=== PATIENT | male | born 1945 | race Caucasian/White ===

== ENCOUNTER → 2018-10-14 12:02 | Outpatient (CLI) | payer OTHER, BC, SELFPAY ==
--- NOTE | 2018-10-14 | DI.MRI.S_ITS ---
PROCEDURE: MR LUMBAR SPINE WO CON INDICATIONS: LUMBAR BACK PAIN TECHNIQUE: Noncontrast sagittal T1 spin echo and T2 fast echo, sagittal STIR, axial T1 and T2 fast spin echo through the lumbar spine. In cases with scoliosis, additional coronal T2 fast spin echo may be performed. COMPARISON: None. FINDINGS: Image quality: Excellent. Alignment and Curvature: There is normal bony alignment. Bone Marrow: Large Schmorl's node involving inferior endplate of L2. There is adjacent marrow edema. No acute vertebral body compression fractures. Spinal Cord: Conus medullaris terminates at the L2 level. Visualized cord demonstrates normal signal and size. Paraspinous Soft Tissues: No paravertebral masses. L1-L2: Normal appearance. L2-L3: Bilateral facet arthropathy. No canal or foraminal stenosis. L3-L4: Broad-based posterior disc bulge and bilateral facet arthropathy. Ligamentum flavum hypertrophy also seen. Mild L3-L4 canal narrowing. Minimal effacement of the lateral recesses. No definite foraminal narrowing L4-L5: Minimal broad-based posterior disc bulge and bilateral facet arthropathy. The lateral recesses appear grossly patent. No definite foraminal narrowing. L5-S1: Posterior annular fissure bilateral facet arthropathy. No definite canal stenosis. Lateral recess appear patent. Moderate left foraminal stenosis. Mild right foraminal narrowing. IMPRESSION: Large Schmorl's node involving the inferior endplate of L2. Adjacent marrow edema suggests acute age. No high-grade canal stenosis. Mild L3-L4 canal narrowing Moderate left L5-S1 foraminal stenosis. Mild right L5-S1 foraminal narrowing. Diffuse facet arthropathy. No fracture Dictated by: Aries Belle M.D. on 10/14/2018 at 15:53 Approved by: Aries Belle M.D. on 10/14/2018 at 16:08
== END ==
PROVIDERS: Visit Provider Family Medicine
DX: M54.5 Low back pain (principal); M51.46 Schmorl's nodes, lumbar region; M48.061 Spinal stenosis, lumbar region without neurogenic claudication; M48.07 Spinal stenosis, lumbosacral region; M47.816 Spondylosis without myelopathy or radiculopathy, lumbar region; M47.817 Spondylosis without myelopathy or radiculopathy, lumbosacral region
CPT/HCPCS: 72148

== ENCOUNTER 2020-12-16 19:12 | Emergency (ER) | payer OTHER, SELFPAY ==
[2020-12-16] VITALS (11 sets, daily range): BP systolic 125–169; BP diastolic 66–83; PULSE 57–73; RESP 14–21; TEMP 36.4; O2SAT 92–100
--- NOTE | 2020-12-16 19:51 | DI.CT.S_ITS ---
PROCEDURE: CT CHEST ABD PEL W CON INDICATIONS: trauma, fall. clavicle and right rib fractures. pain RUQ, TECHNIQUE: After the administration of intravenous contrast, 5 mm thick sections acquired from the lung apices to the symphysis. 2.5 mm thick coronal and sagittal reformats were acquired. Additional 7 mm thick coronal maximum intensity projection (MIP) reformats acquired through the lungs. Optional 10-minute delayed imaging may be performed from the kidneys to the bladder. For radiation dose reduction, the following was used: automated exposure control, adjustment of mA and/or kV according to patient size. COMPARISON: None. FINDINGS: Image quality: Excellent. CHEST: Lungs: No pulmonary contusions or lacerations. Atelectasis are seen in bilateral lung bases posteriorly. Hazy ground-glass opacities are seen scattered in bilateral lung rodriguez suggestive of mild pulmonary edema versus pneumonitis. No pneumothorax or hemothorax. Central and peripheral airways appear patent and normal in caliber. Mediastinum: No mediastinal hematomas. Heart size is enlarged. No pericardial effusion. [id number] atherosclerotic calcifications are noted in coronary vessels. Thoracic aorta and pulmonary arteries demonstrate normal size and enhancement. No mediastinal or hilar adenopathy. Esophagus is normal in caliber. No hiatal hernia. Chest wall: No rib fractures. No subcutaneous emphysema. No axillary or supraclavicular adenopathy. Thyroid gland is prominent in size with subtle hypodensities in bilateral mid to lower thyroid lobes which may represent nodular goiter. ABDOMEN: Solid organs: Liver is normal in size and enhancement, without lacerations. Multiple stones are seen within gallbladder lumen. No gallbladder wall thickening or pericholecystic fluid. Biliary system is non-dilated. Pancreas enhances normally, without transection. Spleen is normal in size and enhancement, without lacerations. No adrenal hematomas. Both kidneys enhance normally, without hydronephrosis or lacerations. Peritoneum and bowel: No free fluid or air. Unenhanced bowel loops demonstrate normal wall thickness and caliber. Nodes and vessels: No retroperitoneal or mesenteric adenopathy. Aorta and inferior vena cava are normal in size and enhancement. Miscellaneous: No ventral hernias. PELVIS: Genitourinary: Bladder wall thickness is normal. Enlarged prostate gland with mass effect on floor of urinary bladder is seen. Miscellaneous: No inguinal hernias or adenopathy. Bones: Pelvic ring and hip joints appear intact. No vertebral compression fractures. There is prior left shoulder rotator cuff tendon repair with postsurgical changes. Degenerative disc disease throughout thoracic and lumbar spine is seen. IMPRESSION: 1. No acute solid organ injury is seen in chest, abdomen or pelvis. No free fluid or free air. 2. Bibasilar dependent atelectasis. Hazy ground-glass opacities scattered in bilateral lung rodriguez suggestive of mild pulmonary edema versus pneumonitis. No pleural effusion or pneumothorax. 3. No gross acute fracture or dislocation is seen. Prior left shoulder rotator cuff tendon repair. No gross acute compression fracture or spondylolisthesis in thoracic or lumbar spine. Osteoarthritis throughout bony pelvis. 4. Cholelithiasis without CT evidence of acute cholecystitis. Dictated by: Reggie Dunlap M.D. on 12/16/2020 at 20:56 Approved by: Reggie Dunlap M.D. on 12/16/2020 at 21:01
--- NOTE | 2020-12-16 19:52 | DI.CT.S_ITS ---
PROCEDURE: CT CERVICAL SPINE WO CON INDICATIONS: fall, C7 pain TECHNIQUE: Noncontrast 3 mm thick sections acquired from the skull base to the T4 level. Sagittal and coronal reformats were then constructed. For radiation dose reduction, the following was used: automated exposure control, adjustment of mA and/or kV according to patient size. COMPARISON: None. FINDINGS: Image quality: Excellent. Bones: No acute cervical scarring fracture or dislocation. Decreased intervertebral disc space, degenerative endplate changes and bilateral facet hypertrophic changes are noted throughout cervical spine more prominent at C5-6 and C6-7 levels. There is mild central canal stenosis and bilateral neural foraminal narrowing at C5-6 and C6-7 levels. Visualized superior ribs are intact. Soft tissues: Prevertebral soft tissues are normal in thickness. No paravertebral hematomas. No apical pneumothoraces. IMPRESSION: 1. No acute cervical spine fracture or dislocation. 2. Degenerative disc disease throughout cervical spine more prominent at C5-6 and C6-7 levels. Dictated by: Reggie Dunlap M.D. on 12/16/2020 at 20:51 Approved by: Reggie Dunlap M.D. on 12/16/2020 at 20:56
[2020-12-16 20:04] LABS: Add Manual Diff / Slide Review NO; Basophils Absolute Auto 0 /uL (0-100); Basophils Percent Auto 0.8 % (0-2); Eosinophils Absolute Auto 0 /uL (0-450); Eosinophils Percent Auto 0.4 % (2-4); Hematocrit 42.6 % (41-53); Hemoglobin 14.6 g/dL (13.5-17.5); Lymphocytes Absolute Auto 900 /uL (1100-4500); Mean Corpuscular HGB Conc 34.3 % (30-36); Mean Corpuscular Hemoglobin 33.4 PG (26-34); Mean Corpuscular Volume 97.2 fL (80-100); Monocytes Absolute Auto 600 /uL (0-900); Monocytes Percent Auto 8.8 % (3-14); Neutrophils Absolute Auto 4800 /uL (1500-7000); Platelet Count 140 X10^3/uL (150-400); Red Blood Cell Count 4.38 X10^6/uL (4.5-5.9); Red Cell Distribution Width 13.7 % (11.6-14.8); White Blood Cell Count 6.4 X10^3/uL (4.5-11.0)
[2020-12-16] MEDS: HYDROMORPHONE 0.5 MG INJ IV (20:05)
[2020-12-16] MEDS: SODIUM CHLORIDE 0.9% 1,000 ML 150 ML IV (20:05)
[2020-12-16 20:16] LABS: Alanine Aminotransferase 24 IU/L (<50); Albumin 4.3 g/dL (3.5-5.0); Albumin Globulin Ratio 1.5 (1.0-2.8); Alkaline Phosphatase 62 U/L (38-126); Aspartate Aminotransferase 26 IU/L (17-59); BUN Creatinine Ratio 26.7 (6-22); Bilirubin Total 0.6 mg/dL (0.2-1.3); Blood Urea Nitrogen 23 mg/dL (9-20); Calcium 9.6 mg/dL (8.4-10.2); Carbon Dioxide 28 mmol/L (22-32); Chloride 106 mmol/L (98-107); Estimated Glomerular Filt Rate > 60.0 mL/min (>60); Globulin 2.8 g/dL (1.7-4.1); Glucose 148 mg/dL (80-110); HEMOLYSIS < 15 (0-50); Potassium 3.9 mmol/L (3.4-5.1); Sodium 138 mmol/L (137-145); Total Protein 7.1 g/dL (6.3-8.2)
[2020-12-16 20:41] LABS: COVID19 -Nasal RAPID Negative (Negative)
--- NOTE | 2020-12-16 21:39 | ED_ITS ---
HPI - Fall General Chief Complaint: Fall Stated Complaint: clavical fx Time Seen by Provider: 12/16/20 19:23 Source: patient Mode of arrival: Ambulatory History of Present Illness HPI Narrative: 75-year-old gentleman with a history of hypertension, paroxysmal atrial fibrillation anticoagulated on Eliquis, BPH and hyperlipidemia presents after a fall earlier today. He was walking down 2 stairs had a sharp pain in his lower back with radicular findings into the right buttock felt like his leg was giving way and he stumbled slightly. He did not have a railing on the right side of the stairs and fell landing on his left shoulder and chest. He had a similar injury that was an L&I injury and he would like to reopen the claim with this new complication of that injury. He does note when he stumbled he landed on his left side and landed on a stump and a rock. He was seen in clinic on or kiss x-rays indicated clavicular fracture and rib fractures on the left 4. In 5. He was sent to the ER for further evaluation. He is complaining of some neck pain, increasing chest wall pain, left upper quadrant pain with some swell miss into the left upper quadrant and continued left arm pain. He also continues to complain of lumbar spine pain. Related Data Home Medications Medication Instructions Recorded Confirmed melatonin 10 mg PO HS #0 01/26/17 tamsulosin [Flomax] 0.4 mg PO QDAY #0 01/26/17 simvastatin #0 05/07/17 Previous Rx's Medication Instructions Recorded terbinafine HCl 250 mg PO QDAY #15 tab 01/26/17 trazodone 50 mg PO HS #90 tab 05/07/17 oxycodone-acetaminophen 1 tab PO Q6H PRN 5 Days #10 tab 12/16/20 Allergies Allergy/AdvReac Type Severity Reaction Status Date / Time No Known Allergies Allergy Uncoded 01/23/18 12:43 Review of Systems Review of Systems Narrative: Pertinent positive and negative findings as per HPI Remainder of review of systems is otherwise unremarkable for Constitutional: Fevers, chills, weakness ENT: No sore throat, neck pain, ear pain CV: Chest pain, palpitations, dyspnea on exertion Respiratory: Cough, wheeze, dyspnea GI: Nausea, vomiting, diarrhea, change in bowel habits, black or bloody stools : Dysuria, hematuria, flank pain MS: Muscle weakness, numbness, joint swelling or warmth Skin: Rashes, nonhealing lesions Neuro: Syncope, dizziness, tingling Patient History Medical History BPH (benign prostatic hyperplasia) Hyperlipidemia Hypertension Paroxysmal atrial fibrillation Surgical History History of repair of rotator cuff Social History Smoking Status: Never smoker Smoking Status: Never smoker alcohol intake frequency: 0-2 drinks per day Substance Use Type: does not use Exam Narrative Exam Narrative: General: Healthy appearing, moderate amount of pain. Able to give a complete and coherent history. Well-nourished well-developed HEENT: Moist mucous membranes, normal sclera with reactive pupils, Neck: No JVD, point tender midline C6 and C7 without or abrasion Respiratory: Lungs are clear to auscultation, no wheezing no rales no rhonchi. Full and symmetrical air movement Chest: Swelling and ecchymosis to the distal left clavicle. Decreased range of motion at the shoulder due to the clavicular pain. Tenderness left posterior ribs. Fullness over the left upper quadrant unclear if this is simply swelling, concern for bleeding. There is no subcutaneous air appreciated no abrasion or discoloration to the skin Cardiac: Regular rate and rhythm no murmurs no bruits Abdomen: Soft, nontender, good bowel tones, no flank pain Skin: Warm and dry, no rashes Neurologic: Grossly neurologically intact with no obvious asymmetries or abnormalities Extremities: Minor bruising around the left knee and an abrasion to the right potts, well perfused and neurovascularly intact distally Psych: Cooperative, appropriate insight and affect Initial Vital Signs Initial Vital Signs: Vital Signs Temperature 97.6 F 12/16/20 19:15 Pulse Rate 73 12/16/20 19:15 Respiratory Rate 18 12/16/20 19:15 Blood Pressure 169/83 H 12/16/20 19:15 Pulse Oximetry 97 12/16/20 19:15 Course Orders Ordered: ED Orders 12/16/20 19:51 CT chest abd pel w con Stat 12/16/20 19:52 CT cervical spine wo con Stat 12/16/20 20:00 Complete Blood Count AUTO DIFF Stat Comprehensive Metabolic Panel Stat Type and Screen Stat 12/16/20 20:24 COVID19 Stat Hydromorphone HCl (Hydromorphone 0.5 Mg Inj) 0.5 mg IV Q15MIN PRN PRN Reason: Pain, Last Admin: 12/16/20 20:05 Dose: 0.5 mg Documented by: YVETTE Sodium Chloride (Normal Saline 0.9%) 1,000 mls @ 150 mls/hr IV CONT DORA Last Admin: 12/16/20 20:05 Dose: 150 mls/hr Documented by: YVETTE Vital Signs Vital signs: Vital Signs - 8 hr 12/16/20 19:15 12/16/20 19:23 12/16/20 19:30 Temperature 97.6 F Pulse Rate 73 72 70 Respiratory Rate 18 Blood Pressure 169/83 H 151/83 H Pulse Oximetry 97 96 96 12/16/20 20:00 12/16/20 20:37 12/16/20 20:43 Temperature Pulse Rate 66 65 Respiratory Rate 14 18 Blood Pressure 151/80 H 157/77 H Pulse Oximetry 96 100 94 12/16/20 21:00 Temperature Pulse Rate 64 Respiratory Rate 15 Blood Pressure 139/79 Pulse Oximetry 92 MDM - Fall Medical Records Attestation: I reviewed the patient's medical records. Lab Data Attestation: I reviewed the patient's lab results. Result diagrams: 12/16/20 20:00 12/16/20 20:00 Labs: Lab Results 12/16/20 12/16/20 12/16/20 Range/Units 20:00 20:00 20:00 WBC 6.4 (4.5-11.0) X10^3/uL RBC 4.38 L (4.5-5.9) X10^6/uL Hgb 14.6 (13.5-17.5) g/dL Hct 42.6 (41-53) % MCV 97.2 (80-100) fL MCH 33.4 (26-34) PG MCHC 34.3 (30-36) % RDW 13.7 (11.6-14.8) % Plt Count 140 L (150-400) X10^3/uL Neut % (Auto) 76.0 H (50-75) % Lymph % (Auto) 14.0 L (25-40) % [place] % (Auto) 8.8 (3-14) % Eos % (Auto) 0.4 L (2-4) % Baso % (Auto) 0.8 (0-2) % Neut # (Auto) 4800 (2962-7842) /uL Lymph # (Auto) 900 L (6887-7385) /uL [place] # (Auto) 600 (0-900) /uL Eos # (Auto) 0 (0-450) /uL Baso # (Auto) 0 (0-100) /uL Sodium 138 (137-145) mmol/L Potassium 3.9 (3.4-5.1) mmol/L Chloride 106 (98-107) mmol/L Carbon Dioxide 28 (22-32) mmol/L BUN 23 H (9-20) mg/dL Creatinine 0.86 (0.66-1.25) mg/dL Estimated GFR > 60.0 (>60) mL/min BUN/Creatinine Ratio 26.7 H (6-22) Glucose 148 H (80-110) mg/dL Calcium 9.6 (8.4-10.2) mg/dL Total Bilirubin 0.6 (0.2-1.3) mg/dL AST 26 (17-59) IU/L ALT 24 (<50) IU/L Alkaline Phosphatase 62 (38-126) U/L Total Protein 7.1 (6.3-8.2) g/dL Albumin 4.3 (3.5-5.0) g/dL Globulin 2.8 (1.7-4.1) g/dL Albumin/Globulin Ratio 1.5 (1.0-2.8) SARS-CoV-2 (PCR) (Negative) Blood Type O Positive Antibody Screen Negative 12/16/20 Range/Units 20:24 WBC (4.5-11.0) X10^3/uL RBC (4.5-5.9) X10^6/uL Hgb (13.5-17.5) g/dL Hct (41-53) % MCV (80-100) fL MCH (26-34) PG MCHC (30-36) % RDW (11.6-14.8) % Plt Count (150-400) X10^3/uL Neut % (Auto) (50-75) % Lymph % (Auto) (25-40) % [place] % (Auto) (3-14) % Eos % (Auto) (2-4) % Baso % (Auto) (0-2) % Neut # (Auto) (1085-7971) /uL Lymph # (Auto) (9754-4894) /uL [place] # (Auto) (0-900) /uL Eos # (Auto) (0-450) /uL Baso # (Auto) (0-100) /uL Sodium (137-145) mmol/L Potassium (3.4-5.1) mmol/L Chloride (98-107) mmol/L Carbon Dioxide (22-32) mmol/L BUN (9-20) mg/dL Creatinine (0.66-1.25) mg/dL Estimated GFR (>60) mL/min BUN/Creatinine Ratio (6-22) Glucose (80-110) mg/dL Calcium (8.4-10.2) mg/dL Total Bilirubin (0.2-1.3) mg/dL AST (17-59) IU/L ALT (<50) IU/L Alkaline Phosphatase (38-126) U/L Total Protein (6.3-8.2) g/dL Albumin (3.5-5.0) g/dL Globulin (1.7-4.1) g/dL Albumin/Globulin Ratio (1.0-2.8) SARS-CoV-2 (PCR) Negative (Negative) Blood Type Antibody Screen Imaging Data CT - cervical spine: Radiologist's Impression: FINDINGS: Image quality: Excellent. Bones: No acute cervical scarring fracture or dislocation. Decreased intervertebral disc space, degenerative endplate changes and bilateral facet hypertrophic changes are noted throughout cervical spine more prominent at C5-6 and C6-7 levels. There is mild central canal stenosis and bilateral neural foraminal narrowing at C5-6 and C6-7 levels. Visualized superior ribs are intact. Soft tissues: Prevertebral soft tissues are normal in thickness. No paravertebral hematomas. No apical pneumothoraces. IMPRESSION: 1. No acute cervical spine fracture or dislocation. 2. Degenerative disc disease throughout cervical spine more prominent at C5-6 and C6-7 levels. Dictated by: Reggie Dunlap M.D. on 12/16/2020 at 20:51 CT chest abdomen pelvis: Radiologist's Impression: FINDINGS: Image quality: Excellent. CHEST: Lungs: No pulmonary contusions or lacerations. Atelectasis are seen in bilateral lung bases posteriorly. Hazy ground-glass opacities are seen scattered in bilateral lung rodriguez suggestive of mild pulmonary edema versus pneumonitis. No pneumothorax or hemothorax. Central and peripheral airways appear patent and normal in caliber. Mediastinum: No mediastinal hematomas. Heart size is enlarged. No pericardial effusion. [id number] atherosclerotic calcifications are noted in coronary vessels. Thoracic aorta and pulmonary arteries demonstrate normal size and enhancement. No mediastinal or hilar adenopathy. Esophagus is normal in caliber. No hiatal hernia. Chest wall: No rib fractures. No subcutaneous emphysema. No axillary or supraclavicular adenopathy. Thyroid gland is prominent in size with subtle hypodensities in bilateral mid to lower thyroid lobes which may represent nodular goiter. ABDOMEN: Solid organs: Liver is normal in size and enhancement, without lacerations. Multiple stones are seen within gallbladder lumen. No gallbladder wall thickening or pericholecystic fluid. Biliary system is non-dilated. Pancreas enhances normally, without transection. Spleen is normal in size and enhancement, without lacerations. No adrenal hematomas. Both kidneys enhance normally, without hydronephrosis or lacerations. Peritoneum and bowel: No free fluid or air. Unenhanced bowel loops demonstrate normal wall thickness and caliber. Nodes and vessels: No retroperitoneal or mesenteric adenopathy. Aorta and inferior vena cava are normal in size and enhancement. Miscellaneous: No ventral hernias. PELVIS: Genitourinary: Bladder wall thickness is normal. Enlarged prostate gland with mass effect on floor of urinary bladder is seen. Miscellaneous: No inguinal hernias or adenopathy. Bones: Pelvic ring and hip joints appear intact. No vertebral compression fractures. There is prior left shoulder rotator cuff tendon repair with postsurgical changes. Degenerative disc disease throughout thoracic and lumbar spine is seen. IMPRESSION: 1. No acute solid organ injury is seen in chest, abdomen or pelvis. No free fluid or free air. 2. Bibasilar dependent atelectasis. Hazy ground-glass opacities scattered in bilateral lung rodriguez suggestive of mild pulmonary edema versus pneumonitis. No pleural effusion or pneumothorax. 3. No gross acute fracture or dislocation is seen. Prior left shoulder rotator cuff tendon repair. No gross acute compression fracture or spondylolisthesis in thoracic or lumbar spine. Osteoarthritis throughout bony pelvis. 4. Cholelithiasis without CT evidence of acute cholecystitis. Dictated by: Reggie Dunlap M.D. on 12/16/2020 at 20:56 MDM Narrative Medical decision making narrative: 75-year-old gentleman status post fall down 2 stairs landing on his left side on a rock and the stump. He sustained a distal clavicle fracture and right 4th and 5th rib fractures without any other trauma. There is some mild splinting and atelectasis in the left lung base and will be given an incentive spirometer to use at home. There is no evidence of excessive bleeding, hemopneumothorax, other rib fractures or complication, no splenic abnormalities and no cervical or lumbar spine acute injuries. Discussed appropriate use of pain medications and incentive spirometer and he is discharged home. Discharge Plan Departure Patient Disposition: Home Clinical Impression: Fall Qualifiers: Encounter type: initial encounter Qualified Code(s): W19.XXXA - Unspecified fall, initial encounter Clavicle fracture Qualifiers: Encounter type: initial encounter Clavicle location: lateral end Fracture type: closed Fracture alignment: displaced Laterality: left Qualified Code(s): S42.032A - Displaced fracture of lateral end of left clavicle, initial encounter for closed fracture Multiple rib fractures Qualifiers: Encounter type: initial encounter Fracture type: closed Laterality: left Qualified Code(s): S22.42XA - Multiple fractures of ribs, left side, initial encounter for closed fracture Activity Restrictions/Additional Instructions: Thank you for coming in today This CT scan of your neck did not show any C-spine injury The CT scan of your chest, abdomen, pelvis showed the clavicle fracture on the left and the left 4th and 5th rib fractures. There is no blood collecting around her lung, collapsed lung or punctured lung. You do have some swelling over the left anterior portion of your stomach with no significant corresponding CT findings. This suggests that that swelling is simply superficial swelling and not excessive bleeding or internal injury. Your left lung on the CT scan looks like you are carefully protecting it and not taking deep enough breaths. You have been given an incentive spirometer and I encourage you to use it multiple times a day. This helps keep your lung fully inflated so that you do not develop a pneumonia. Please use 2 Aleve and 1 Tylenol a.m. and p.m. for the next week and then use that as needed for pain following that. I am going to give you some Percocet to use for severe pain during the day. Any day that you take narcotic for pain control, please make sure that you are also using a stool softener to prevent constipation. As this is a continued L&I claim and your original surgery was with Dr. Taveras on the same shoulder, I am going to suggest that you follow-up with Dr. Taveras in the next 3-5 days for the clavicle fracture. Please continue to use the sling for your left arm to help with the clavicle fracture You need to be out of work for your next scheduled 7 day work shift and from ere will need recommendations based on Dr. Taveras's evaluation of your shoulder I hope you heal quickly Prescriptions: New oxycodone-acetaminophen 5-325 mg tablet 1 tab PO Q6H PRN (Reason: pain) 5 Days Qty: 10 RF: 0 No Action tamsulosin [Flomax] 0.4 MG capsule,extended release 24hr 0.4 mg PO QDAY Qty: 0 RF: 0 melatonin 10 MG capsule 10 mg PO HS Qty: 0 RF: 0 terbinafine HCl 250 MG tablet 250 mg PO QDAY Qty: 15 RF: 0 simvastatin 5 mg tablet Qty: 0 RF: 0 trazodone 50 MG tablet 50 mg PO HS Qty: 90 RF: 10
[2020-12-16] MEDS: OXYCODONE/APAP 5/325 PREPACK 1 BOTTLE MISC (23:13)
[2020-12-16] MEDS: OXYCODONE/ACETAMINOPHEN 5/325 TABLET 1 TAB PO (23:14)
== END 2020-12-16 23:22 | disposition home or self-care (01) ==
PROVIDERS: Emergency Provider Emergency Medicine
DX: S42.032A Displaced fracture of lateral end of left clavicle, initial encounter for closed fracture (principal); S22.42XA Multiple fractures of ribs, left side, initial encounter for closed fracture; W10.9XXA Fall (on) (from) unspecified stairs and steps, initial encounter; Y99.0 Civilian activity done for income or pay; I48.0 Paroxysmal atrial fibrillation; Z79.01 Long term (current) use of anticoagulants; M54.2 Cervicalgia; R07.89 Other chest pain; R10.12 Left upper quadrant pain; Z20.822 Contact with and (suspected) exposure to COVID-19
CPT/HCPCS: 36415; 71260; 72125; 74177; 80053; 85025; 86850; 86900; 86901; 87635; 96361; 96374; 99284; C9803; J1170; Q9967

== ENCOUNTER → 2022-05-05 10:26 | Outpatient (CLI) | payer OTHER, SELFPAY ==
[2022-05-05 19:08] LABS: Add Manual Diff / Slide Review NO; Basophils Absolute Auto 0 /uL (0-100); Basophils Percent Auto 0.7 % (0-2); Eosinophils Absolute Auto 0 /uL (0-450); Eosinophils Percent Auto 1.5 % (2-4); Hematocrit 43.4 % (41-53); Hemoglobin 14.7 g/dL (13.5-17.5); Lymphocytes Absolute Auto 800 /uL (1100-4500); Lymphocytes Percent Auto 25.7 % (25-40); Mean Corpuscular HGB Conc 33.8 % (30-36); Mean Corpuscular Hemoglobin 33.1 PG (26-34); Mean Corpuscular Volume 97.8 fL (80-100); Monocytes Absolute Auto 300 /uL (0-900); Monocytes Percent Auto 10.4 % (3-14); Neutrophils Absolute Auto 2000 /uL (1500-7000); Neutrophils Percent Auto 61.7 % (50-75); Platelet Count 140 X10^3/uL (150-400); Red Blood Cell Count 4.44 X10^6/uL (4.5-5.9); Red Cell Distribution Width 13.8 % (11.6-14.8); White Blood Cell Count 3.2 X10^3/uL (4.5-11.0)
[2022-05-05 19:11] LABS: Alanine Aminotransferase 23 IU/L (<50); Albumin 4.4 g/dL (3.5-5.0); Albumin Globulin Ratio 1.6 (1.0-2.8); Alkaline Phosphatase 52 U/L (38-126); Aspartate Aminotransferase 25 IU/L (17-59); Blood Urea Nitrogen 21 mg/dL (9-20); Calcium 9.5 mg/dL (8.4-10.2); Carbon Dioxide 29 mmol/L (22-32); Chloride 103 mmol/L (98-107); Estimated Glomerular Filt Rate > 60 mL/min (>60); Globulin 2.8 g/dL (1.7-4.1); Glucose 105 mg/dL (80-110); HEMOLYSIS < 15 (0-50); Potassium 4.3 mmol/L (3.4-5.1); Sodium 140 mmol/L (137-145); Total Protein 7.2 g/dL (6.3-8.2)
== END ==
PROVIDERS: PCP Family Medicine; Visit Provider Family Medicine
DX: I10 Essential (primary) hypertension (principal)
CPT/HCPCS: 80053; 85025

== ENCOUNTER → 2022-05-29 11:59 | Outpatient (CLI) | payer OTHER, SELFPAY ==
--- NOTE | 2022-05-29 12:01 | DI.MRI.S_ITS ---
PROCEDURE: MR SHOULDER RT WO CON INDICATIONS: Fall on shoulder; unable to flex/extend TECHNIQUE: Noncontrast oblique coronal T2 fast spin echo with fat saturation, oblique sagittal T1 spin echo and T2 fast spin echo with fat saturation, axial T1 spin echo and T2 fast spin echo with fat saturation through the shoulder. COMPARISON: [facility] ([facility]), CR, XR SHOULDER RT MIN 2V, 03/09/2022, 13:50. FINDINGS: Image quality: Excellent. Rotator cuff: There is full-thickness tearing of the supraspinatus tendon at the anterior footprint measuring approximately 0.6 cm in anterior-posterior dimension with proximal tendon retraction measuring up to 1.3 cm. There is full-thickness tearing of the mid to posterior supraspinatus tendon and the anterior fibers of the infraspinatus tendon at the critical zone approximately 1.8 cm proximal to the distal insertion measuring approximately 1.8 cm in anterior-posterior dimension with separation of tendon fibers by up to 1.2 cm. There is delamination and retraction of articular sided fibers by up to 2.8 cm. Fluid is seen tracking medially along the supraspinatus and infraspinatus tendons to the myotendinous junction. No disproportionate muscle atrophy is seen. Teres minor tendon is intact. There is moderate subscapularis tendinosis and low-grade intrasubstance tearing at the superior insertion. Bones and bursae: No acute trabecular bone injury. Chronic traction cystic changes are seen at the posterosuperior humeral head. No glenohumeral cartilage defect is seen. Moderate degenerative changes are seen in the acromioclavicular joint with marginal osteophyte formation and subchondral cystic changes. The humeral head is high riding with mild narrowing of the acromiohumeral interval. Subacromial/subdeltoid bursal fluid communicates with the glenohumeral joint space. Capsule and soft tissues: There is a mildly posterior displaced tear of the posterior labrum with uptake of la posta joint fluid. The periosteal attachment appears to remain intact. Moderate tendinosis of the intra-articular portion of the biceps long head tendon. There is partial effacement of the normal fat signal in the rotator interval. The glenohumeral ligaments appear to remain in continuity. IMPRESSION: 1. Complex full-thickness tearing of the supraspinatus tendon and the anterior fibers of the infraspinatus tendon. Full-thickness component is seen at the anterior supraspinatus tendon footprint. This tear continues posteromedially to involve the critical zone at the mid to posterior supraspinatus tendon and anterior infraspinatus tendon. Approximately 1.3 cm of retraction of bursal sided fibers is seen with delamination and further retraction of articular sided fibers measuring up to 2.8 cm. Fluid is also seen tracking medially along the supraspinatus and infraspinatus tendons to the myotendinous junction. The humeral head is mildly high riding with narrowing of the acromiohumeral interval. 2. Moderate subscapularis tendinosis with low-grade intrasubstance tearing at the superior insertion. 3. Moderate tendinosis of the biceps long head tendon. 4. Mildly posteriorly displaced tear of the posterior glenoid labrum with an intact periosteal attachment. 5. Moderate acromioclavicular joint osteoarthrosis. 6. Moderate subacromial/subdeltoid bursal effusion communicates with the glenohumeral joint space. Dictated by: Elan Blair M.D. on 05/29/2022 at 14:14 Approved by: Elan Blair M.D. on 05/29/2022 at 14:28
== END ==
PROVIDERS: PCP Family Medicine; Referring Provider Physician Assistant; Visit Provider Physician Assistant
DX: S46.011A Strain of muscle(s) and tendon(s) of the rotator cuff of right shoulder, initial encounter (principal); S43.491A Other sprain of right shoulder joint, initial encounter; M19.011 Primary osteoarthritis, right shoulder; W19.XXXA Unspecified fall, initial encounter
CPT/HCPCS: 73221

== ENCOUNTER → 2023-04-19 09:10 | Outpatient (CLI) | payer OTHER, SELFPAY ==
[2023-04-19 20:18] LABS: Add Manual Diff / Slide Review NO; Basophils Absolute Auto 0 /uL (0-100); Eosinophils Absolute Auto 100 /uL (0-450); Eosinophils Percent Auto 1.5 % (2-4); Hematocrit 41.3 % (41-53); Hemoglobin 14.1 g/dL (13.5-17.5); Lymphocytes Absolute Auto 700 /uL (1100-4500); Lymphocytes Percent Auto 21.5 % (25-40); Mean Corpuscular HGB Conc 34.2 % (30-36); Mean Corpuscular Hemoglobin 33.6 PG (26-34); Mean Corpuscular Volume 98.3 fL (80-100); Monocytes Absolute Auto 400 /uL (0-900); Monocytes Percent Auto 10.6 % (3-14); Neutrophils Absolute Auto 2200 /uL (1500-7000); Neutrophils Percent Auto 65.4 % (50-75); Platelet Count 147 X10^3/uL (150-400); Red Cell Distribution Width 13.6 % (11.6-14.8); White Blood Cell Count 3.4 X10^3/uL (4.5-11.0)
[2023-04-19 20:19] LABS: BUN Creatinine Ratio 18.8 (6-22); Blood Urea Nitrogen 15 mg/dL (9-20); Calcium 9.2 mg/dL (8.4-10.2); Carbon Dioxide 27 mmol/L (22-32); Chloride 106 mmol/L (98-107); Cholesterol 192 mg/dL (140-199); Estimated Glomerular Filt Rate > 60 mL/min (>60); Glucose 107 mg/dL (80-110); HDL Cholesterol 48 mg/dL (40-60); HEMOLYSIS < 15 (0-50); LDL Cholesterol Calculated 126 mg/dL (<100); Potassium 4.4 mmol/L (3.4-5.1); Sodium 137 mmol/L (137-145); Triglycerides 88 mg/dL (35-150)
[2023-04-19 20:49] LABS: TSH w/ Reflex to FT4 0.52 uIU/mL (0.47-4.68)
== END ==
PROVIDERS: PCP Family Medicine; Visit Provider Family Medicine
DX: E78.5 Hyperlipidemia, unspecified (principal); I10 Essential (primary) hypertension; I48.0 Paroxysmal atrial fibrillation; N40.0 Benign prostatic hyperplasia without lower urinary tract symptoms; Z79.01 Long term (current) use of anticoagulants
CPT/HCPCS: 80048; 80061; 84443; 85025

== ENCOUNTER → 2023-11-26 10:56 | Outpatient (CLI) | payer OTHER, MEDICARE, SELFPAY ==
[2023-11-26 18:48] LABS: Add Manual Diff / Slide Review NO; Basophils Absolute Auto 0 /uL (0-100); Basophils Percent Auto 1.2 % (0-2); Eosinophils Absolute Auto 100 /uL (0-450); Eosinophils Percent Auto 1.8 % (2-4); Hematocrit 40.4 % (41-53); Lymphocytes Absolute Auto 1000 /uL (1100-4500); Lymphocytes Percent Auto 30.9 % (25-40); Mean Corpuscular HGB Conc 34.7 % (30-36); Mean Corpuscular Hemoglobin 33.6 PG (26-34); Mean Corpuscular Volume 96.7 fL (80-100); Monocytes Absolute Auto 400 /uL (0-900); Monocytes Percent Auto 12.8 % (3-14); Neutrophils Absolute Auto 1700 /uL (1500-7000); Neutrophils Percent Auto 53.3 % (50-75); Platelet Count 125 X10^3/uL (150-400); Red Blood Cell Count 4.18 X10^6/uL (4.5-5.9); Red Cell Distribution Width 13.6 % (11.6-14.8); White Blood Cell Count 3.2 X10^3/uL (4.5-11.0)
== END ==
PROVIDERS: PCP Family Medicine; Visit Provider Family Medicine
DX: D61.818 Other pancytopenia (principal); I48.0 Paroxysmal atrial fibrillation; M79.662 Pain in left lower leg; I10 Essential (primary) hypertension; E78.5 Hyperlipidemia, unspecified; Z96.653 Presence of artificial knee joint, bilateral; Z79.01 Long term (current) use of anticoagulants
CPT/HCPCS: 85025

== ENCOUNTER → 2024-08-21 10:50 | Outpatient (CLI) | payer OTHER, SELFPAY ==
[2024-08-21 19:45] LABS: Add Manual Diff / Slide Review NO; Basophils Absolute Auto 0 /uL (0-100); Eosinophils Absolute Auto 100 /uL (0-450); Eosinophils Percent Auto 1.7 % (2-4); Hematocrit 43.1 % (41-53); Hemoglobin 14.5 g/dL (13.5-17.5); Lymphocytes Absolute Auto 700 /uL (1100-4500); Lymphocytes Percent Auto 21.4 % (25-40); Mean Corpuscular HGB Conc 33.7 % (30-36); Mean Corpuscular Hemoglobin 33.6 PG (26-34); Mean Corpuscular Volume 99.8 fL (80-100); Monocytes Absolute Auto 300 /uL (0-900); Neutrophils Absolute Auto 2000 /uL (1500-7000); Neutrophils Percent Auto 64.9 % (50-75); Platelet Count 145 X10^3/uL (150-400); Red Blood Cell Count 4.32 X10^6/uL (4.5-5.9); Red Cell Distribution Width 14.3 % (11.6-14.8); White Blood Cell Count 3.1 X10^3/uL (4.5-11.0)
[2024-08-21 20:08] LABS: BUN Creatinine Ratio 26.1 (6-22); Blood Urea Nitrogen 23 mg/dL (9-20); Calcium 9.5 mg/dL (8.4-10.2); Carbon Dioxide 25 mmol/L (22-32); Chloride 106 mmol/L (98-107); Estimated Glomerular Filt Rate > 60 mL/min (>60); Glucose 143 mg/dL (80-110); HEMOLYSIS < 15 (0-50); Sodium 137 mmol/L (137-145)
[2024-08-21 20:38] LABS: Prostate Specific Antigen 2.17 ng/mL (0.10-4.00)
== END ==
PROVIDERS: PCP Family Medicine; Visit Provider Family Medicine
DX: D61.818 Other pancytopenia (principal); Z79.01 Long term (current) use of anticoagulants; J44.9 Chronic obstructive pulmonary disease, unspecified; I10 Essential (primary) hypertension; E78.2 Mixed hyperlipidemia; N40.0 Benign prostatic hyperplasia without lower urinary tract symptoms; I48.0 Paroxysmal atrial fibrillation
CPT/HCPCS: 80048; 84153; 85025

== ENCOUNTER 2024-11-25 12:18 | Outpatient (CLI) | payer OTHER, SELFPAY ==
[2024-11-25] VITALS (8 sets, daily range): BP systolic 115–160; BP diastolic 64–86; PULSE 60–72; RESP 14–18; TEMP 36.2; O2SAT 93–98
--- NOTE | 2024-11-25 12:20 | DI.RAD.S_ITS ---
PROCEDURE: PAIN L INTERLAMINAR/CAUDAL INJ INDICATIONS: L3/4 TL ANA COMPARISON: None. FINDINGS/IMPRESSION: Fluoroscopic spot filming was performed to verify placement of spinal needles at the L3-4 level(s), as labeled on the films. Appropriate location(s) of the needle tip(s) was confirmed by injection of iodinated contrast. Dictated by: Reggie Dnulap M.D. on 11/25/2024 at 14:56 Approved by: Reggie Dunlap M.D. on 11/25/2024 at 14:56
[2024-11-25] MEDS: MIDAZOLAM 2 MG/2 ML VIAL IV (13:30)
[2024-11-25] MEDS: BUPIVACAINE 0.25% (PF) VIAL 2 ML INJ (13:38)
[2024-11-25] MEDS: DEXAMETHASONE 10 MG/ML VIAL INJ (13:38)
[2024-11-25] MEDS: iopamidoL 15 ML VIAL 3 ML INJ (13:38)
[2024-11-25] MEDS: BETAMETHASONE 30 MG/5 ML MDV 12 MG INJ (13:39)
--- NOTE | 2024-11-25 13:48 | P.PCN_ITS ---
Date/Time/Diagnoses Date of procedure: 11/25/24 Time of procedure: 13:48 Pre-procedure diagnosis: 1. HNP WITH RADICULAR FEATURES, 2. MULTILEVEL CENTRAL STENOSIS, Post-procedure diagnosis: same Procedure Notes Procedure: 1. FLUOROSCOPICALLY GUIDED CONTRAST CONTROLLED INTERLAMINAR EPIDURAL STEROID INJECTION - L3/4 Indications: Siva is referred by Dr. Zamudio for treatment of Bilateral Foraminal Stenosis L>R LE symptoms. Physician: Sivakumar Amos Total Fluoroscopy time (seconds): 6 Total sedation minutes: 13 Complications: none Procedure in detail & Post-procedure care: FINDINGS Multilevel Central Spinal Stenosis with Nerve Root Compression DESCRIPTION OF PROCEDURE Fluoroscopically guided, contrast-controlled L3/4 translaminar epidural steroid injection. Following review of allergy and review of potential side effects and complications, including, but not necessarily limited to, infection, allergic reaction, local tissue breakdown, temporary as well as permanent nerve injury, paralysis, stroke and possible , the patient indicated that the patient understood and agreed to proceed. An informed consent document was signed by the patient, witnessed by a nurse, and placed in the patient's chart. Additionally, other treatment options including modalities, medications, and physical therapy were reviewed with the patient. After review of previous anaesthesic history and IV conscious sedation the patient was deemed safe to proceed with today?s procedure with IV conscious sedation as ASA class II designation. Safety time-out was performed to confirm p atient ID, procedure to be performed and site of procedure. IV sedation was accomplished with a combination of 2mg of Versed was administered by the RN after DO order, titrated to patient comfort during the course of the procedure while the patient remained responsive to all verbal commands. In the prone position, following sterile prep and drape of the lumbar region, the L3/4 translaminar space was identified fluoroscopically. The skin was anesthetized via a 25-gauge, 1.5-inch needle with 1% lidocaine solution. At this point, a 22-gauge short bevel spinal needle was atraumatically introduced and advanced under fluoroscopic guidance into the region of the L3/4 translaminar space. Depth was confirmed on lateral view. Radiological data, including multiple fluoroscopic views of the lumbar spine, reveal a spinal needle at the L3/4 translaminar space. Lateral views then show placement of the needle in the epidural space. Subsequent views show contrast material flowing superiorly and inferiorly in the epidural space. No vascular or intrathecal uptake is observed. At this point, using loss of resistance technique with saline and air, the epidural space was entered. This was confirmed following negative aspiration with injection of approximately 1.5 cc of Isovue 200, showing excellent epidural flow without vascular or intrathecal uptake. At this point, 1cc of 1% lidocaine solution combined with 2cc or 10mg of dexamethasone and 6mg of betamethasone was injected without incident. The patient tolerated the procedure well without signs or symptoms of complications prior to transfer to the recovery area continued monitoring without incident. The patient was then transferred to the recovery area where they were observed for an appropriate period of time after the injection. The patient reported a VAS score of 8 prior to the procedure and a post- procedure VAS of 1. POST OP INSTRUCTIONS The patient was provided a Pain Log to continue to record their response to the target-specific procedure prior to follow-up visit with their referring physician. Additionally, specific post-injection care instructions and a contact number to our office were provided if concerns arise regarding possible complications associated with the procedure are suspected.
--- NOTE | 2024-11-25 14:06 | DI.RAD.S_ITS ---
PROCEDURE: XR LUMBAR SPINE MIN 4V INDICATIONS: LBP TECHNIQUE: 5 views of the lumbar spine were acquired, including bilateral oblique views. COMPARISON: None. FINDINGS: Five non rib-bearing lumbar vertebrae are present. Diffuse osseous demineralization. The vertebral body heights are preserved. The lumbar lordosis is preserved. Multilevel moderate-severe facet arthropathy, most conspicuous at L3-L4, L4-L5, and L5-S1. Multilevel hypertrophy of the spinous processes. The intervertebral disc heights are preserved. No significant pars defects on the oblique views. IMPRESSION: Multilevel moderate-severe lumbar facet arthropathy with hypertrophy of the spinous processes, which can be seen with Baastrup's disease. Dictated by: Joe Harrison M.D. on 11/25/2024 at 14:38 Approved by: Joe Harrison M.D. on 11/25/2024 at 14:57
== END 2024-11-25 14:00 | disposition home or self-care (01) ==
PROVIDERS: PCP Family Medicine; Referring Provider Physical Medicine & Rehabilitation; Visit Provider Physical Medicine & Rehabilitation
DX: M51.16 Intervertebral disc disorders with radiculopathy, lumbar region (principal); M48.061 Spinal stenosis, lumbar region without neurogenic claudication; M47.26 Other spondylosis with radiculopathy, lumbar region; M47.27 Other spondylosis with radiculopathy, lumbosacral region
CPT/HCPCS: 62323; 72110; 99152; J0702; J1100; J2250; J3490